=== PATIENT | female | born 1985 | race Asian ===

== ENCOUNTER 2023-03-09 20:07 | Emergency (ER) | payer SELFPAY ==
[~2023-03-09] VITALS: Ht 162.6 cm; Wt 61.2 kg
[2023-03-09 20:21] VITALS: BP 116/71; TEMP 98
[2023-03-09 21:46] VITALS: O2SAT 98
== END 2023-03-09 21:46 | disposition home or self-care (01) ==
LOC: ER 20:14
DX: M79.661 Pain in right lower leg (principal); J45.909 Unspecified asthma, uncomplicated
CPT/HCPCS: 93970-TC